=== PATIENT | male | born 1940 | race Caucasian/White ===

== ENCOUNTER → 2018-01-24 | Outpatient (CLI) | payer MEDICARE, OTHER ==
[~2018-01-24] MED LIST: AMLO10TA2 PO; ASPI81TA23 PO; ATOR40TA16 PO; BYST10TA2 PO; CALC600T5 PO; COCO1000 PO; COQ1200C PO; ESCI20TA PO; FERR1TAB58 PO; FINA5TAB2 PO; FURO20TA PO; IPRA0.06 EACH NARE; KRIL300C PO; LAMO100T PO; LANTINJ SQ; LISI40TA PO; LORA0.5T PO; LUTE20CA PO; MAGN400C2 PO; MELA10CA PO; METF500T PO; NEXI40CA PO; NOVOLOGP2 SQ; OMEG340C PO; PHEN200C3 PO; SYSTSOL15 EACH EYE; VITA100064 PO; VITA500C9 CHEW; VITA500T4 PO; ZYRT10CA PO
[2018-01-24 18:30] LABS: CALCIUM 9.4 MG/DL (8.5-10.1)
== END ==
LOC: PLAB 14:25
PROVIDERS: ATTEND Orthopaedic Surgery Orthopaedic Surgery of the Spine
DX: M81.0 Age-related osteoporosis without current pathological fracture (principal)
CPT/HCPCS: 36415; 82306; 82310

== ENCOUNTER 2018-04-03 09:39 | Observation (INO) ==
[2018-04-03 14:35] VITALS: PULSE 60; TEMP 98.3; O2SAT 95
[2018-04-04 13:32] VITALS: BP 145/68; RESP 18
== END 2018-04-03 16:44 | disposition home or self-care (01) ==
LOC: PHED 09:39 → PH3 09:39 → PHEDA 09:39 → PH3 15:35
PROVIDERS: ADMIT Hospitalist; ATTEND Hospitalist